=== PATIENT | female | born 1985 | race Two or more races ===

== ENCOUNTER 2018-07-30 09:24 | Emergency (ER) | payer MEDICAID ==
[~2018-07-30] VITALS: Ht 167.6 cm; Wt 72.6 kg
[2018-07-30 09:29] VITALS: BP 136/87
== END 2018-07-30 11:05 | disposition home or self-care (01) ==
LOC: ER 09:25
DX: S60.561A Insect bite (nonvenomous) of right hand, initial encounter (principal); S00.86XA Insect bite (nonvenomous) of other part of head, initial encounter; F17.200 Nicotine dependence, unspecified, uncomplicated; W57.XXXA Bitten or stung by nonvenomous insect and other nonvenomous arthropods, initial encounter; Y93.89 Activity, other specified; Y92.89 Other specified places as the place of occurrence of the external cause; Y99.8 Other external cause status
CPT/HCPCS: A4606; Z7610